=== PATIENT | male | born 1935 | race Caucasian/White ===

== ENCOUNTER → 2017-09-18 | Outpatient (CLI) | payer OTHER, BC ==
[~2017-09-18] MED LIST: AMITRIPTYLINE H25 MG PO; BISOPROLOL FUMAR5 MG PO; CARDIZEM60 MG PO; RAMIPRIL10 MG PO; SIMVASTATIN40 MG PO; WARFARIN SODIUM3 MG PO; WARFARIN SODIUM4 MG PO
== END | disposition home or self-care (01) ==
LOC: AMB 13:23
DX: L57.0 Actinic keratosis (principal); L82.1 Other seborrheic keratosis; C44.629 Squamous cell carcinoma of skin of left upper limb, including shoulder
CPT/HCPCS: 88305